=== PATIENT | male | born 1990 | race Hispanic/Latino ===

== ENCOUNTER 2024-09-19 11:05 | Emergency (ER) | payer OTHER, SELFPAY ==
[2024-09-19] MEDS ORDERED: KETOROLAC 30 MG/ML INJ ONE (11:54)
--- NOTE | 2024-09-19 13:12 | RAD REPORT ---
EXAMINATION: ULTRASOUND DUPLEX OF SCROTUM AND TESTICLES CLINICAL INDICATION: Testicular pain TECHNIQUE: Duplex scan of the scrotal contents was performed including real-time color and spectral D oppler ultrasonography with arterial inflow and venous outflow. COMPARISON: No prior exam. FINDINGS: Right testicle measures 4.9 x 2.8 x 3.9 cm with a normal echotexture. Normal blood flow. Left testicle measures 5.1 x 3 x 3 cm with a normal echotexture. Normal blood flow. Right epididymis is enlarged with increased blood flow.. 3 mm spermatocele Left epididymis normal in size and echotexture. Normal blood flow Increased echogenicity is present within the right inguinal region suspicious for a fat filled hernia . IMPRESSION: Enlarged right epididymis with increased blood flow probably an epididymitis Probable right inguinal hernia containing fat
--- NOTE | 2024-09-19 14:06 | RAD REPORT ---
EXAMINATION: CT ABDOMEN AND PELVIS WITHOUT CONTRAST CLINICAL INDICATION: Abdominal pain. Inguinal hernia TECHNIQUE: CT abdomen and pelvis was performed, as per department protocol. IV contrast and oral was not administered.Axial, sagittal and coronal reconstructions were obtained. One or more of the following dose reduction techniques were used: Automated exposure control, adjustment of the mA and/o r kV according to the patient size, and/or iterative reconstruction. Unless otherwise specified, incidental findings do not require dedicated imaging follow-up. [id number]. COMPARISON: Scrotal ultrasound September 15, 2024. FINDINGS: The lack of intravenous and oral contrast limits evaluation of solid organs, vessels and bowel. Fatty liver. The spleen, pancreas, adrenals and kidneys appear grossly normal No evidence of diverticulitis Normal appendix. Small umbilical hernia. Small left inguinal hernia contains fat. [id number] right inguinal hernia contains increased density. Right varicocele IMPRESSION: [id number] right inguinal hernia with increased density could either indicate inflammation or contusion related to trauma. Right varicocele
[2024-09-19 14:32] LABS: Specific Gravity 1.026 (1.005-1.030); Sqamous Epithelial <5 /HPF (None Seen); Urine Bacteria None Seen /HPF (<20); Urine Bilirubin NEGATIVE (Negative); Urine Blood Trace (Negative); Urine Clarity Extremely Turbid (Clear); Urine Color Yellow (Yellow); Urine Crystals Unidentified Few /HPF (None Seen); Urine Culture Reflex Order REFLEXED; Urine Glucose NEGATIVE (Negative); Urine Ketones 1+ (Negative); Urine Micro Reflex YN NO BILL MICROSCOPIC; Urine Mucus Slight /HPF (None Seen); Urine Nitrite NEGATIVE (Negative); Urine Protein TRACE (Negative); Urine Urobilinogen Normal (Normal); Urine WBC >50 /HPF (<5); Urine WBC Clump Rare /HPF (None Seen); Urine Yeast (Budding) Trace /HPF (None Seen); Urine pH 6.5 (5.0-7.0)
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
[2024-09-19] MEDS ORDERED: CEFTRIAXONE 500 MG/VIAL ONE (15:18)
[2024-09-19] MEDS ORDERED: LIDOCAINE 1% MPF 2 ML AMPULE ONE (15:18)
[2024-09-19 17:24] VITALS: TEMP 100.4
[2024-09-19 17:25] VITALS: BP 132/80; O2SAT 99
== END 2024-09-19 15:29 | disposition home or self-care (01) ==
LOC: ER 11:05
DX: N45.1 Epididymitis (principal); K40.90 Unilateral inguinal hernia, without obstruction or gangrene, not specified as recurrent
CPT/HCPCS: 74176; 76870; 81001; 87086; 87088; 96372; 99284